=== PATIENT | female | born 1960 | race Caucasian/White ===

== ENCOUNTER 2016-05-28 10:50 | Observation (INO) | payer BC ==
[~2016-05-28] VITALS: Ht 165.1 cm; Wt 80.7 kg
[~2016-05-28 10:50] MED LIST: BUPIVACAINE/EPINEPHRINE 0.5% PF 30 ML VIAL ONE; DIAZ5TAB PO; FENO54TA PO; GELFOAM SIZE 100 ONE; GENTAMICIN SULFATE 80 MG/2 ML VIAL ONE; LACTATED RINGER'S 1000 ML INJ 1,000 ML IV ONE; LAMI200T PO; OMEP20TA PO; ONDANSETRON HCL 4 MG/2 ML VIAL IV PUSH ONE; OXYC1TAB36 PO; PHENYLEPHRINE HCL 10 MG/ML VIAL IV ONE; PROPOFOL 200 MG/20 ML AMP IV ONE; PSEU30TA2 PO; RISP3TAB2 PO; SERT-129 PO; SODIUM CHLOR 0.9% 250 ML INJ 250 ML IV ONE; SODIUM CHLOR 0.9% 250 ML INJ 250 ML ONE; THROMBIN (TOPICAL) 5,000 UNIT VIAL ONE; TRAZ300T2 PO; VANCOMYCIN HCL 1000 MG VIAL ONE; ceFAZolin 2 GM PREMIX 50 ML ONE; ePHEDrine/NS 25 MG/5 ML SYR IV ONE
[2016-05-28 11:36] VITALS: BP 158/64; PULSE 82; RESP 16; TEMP 97.3; O2SAT 98
[2016-05-28] MEDS ORDERED: METOPROLOL TARTRATE 25 MG TAB PO PRN (11:45)
[2016-05-28] MEDS ORDERED: INSULIN HUMAN REGULAR 1,000 UNITS/10 ML VIAL SQ PRN (11:45)
[2016-05-28] MEDS ORDERED: LACTATED RINGER'S 1000 ML IV SCH (12:00)
[2016-05-28] MEDS ORDERED: PHENYLEPHRINE HCL 10 MG/ML VIAL IV ONE (12:00)
[2016-05-28] MEDS ORDERED: SODIUM CHLORID 0.9% 500 ML IV SCH (12:00)
[2016-05-28] MEDS ORDERED: FAMOTIDINE 20 MG/2 ML VIAL ONE ×2 (13:08→13:58)
[2016-05-28] MEDS ORDERED: ARTIFICIAL TEARS OPTH OINT 3.5 APPLIC/3.5 GM TUBO ONE (13:57)
[2016-05-28] MEDS ORDERED: ACETAMINOPHEN 1000 MG/100 ML VIAL IV ONE (13:57)
[2016-05-28] MEDS ORDERED: SUGAMMADEX SODIUM 200 MG/2 ML VIAL IV PUSH ONE ×2 (13:58)
[2016-05-28] MEDS ORDERED: fentaNYL CITRATE 250 MCG/5 ML AMP ONE (13:58)
[2016-05-28] MEDS ORDERED: MIDAZOLAM HCL 2 MG/2 ML VIAL ONE (13:58)
[2016-05-28] MEDS ORDERED: GELFOAM SIZE 100 ONE (14:36)
[2016-05-28] MEDS ORDERED: methylPREDNISolone ACETATE 40 MG/ML VIAL IA ONE (15:58)
--- NOTE | 2016-05-28 16:55 | PD.OP ---
Operative Report Date of Surgery: May 28, 2016 Preoperative Diagnosis: L4-5 recurrent disk herniation Postoperative Diagnosis: L4-5 recurrent disk herniation Procedure: Redo L4-L5 left hemilaminectomy and microdiscectomy Anesthesia: general Surgeon: Martin Lucia Tax Assistant(s): Brenda Watson Operation and Findings: INDICATIONS FOR THE SURGICAL PROCEDURE ms Woodward is a 55 year-old female with history of a prior left L4-5 laminectomy and microdiscectomy. She suffered recurrent falls and presented with intractable mechanical back pain and clinical evidence of left L5 lower extremity radiculopathy. She was found to have a recurrent disk herniation causing significant stenosis with significant mass effect on the neural structures which correlated with the clinical symptoms. She failed maximum nonsurgical management in the past. A surgical decompression were indicated as a last resource. The [id number] details of the procedure, indications, alternatives, risks and potential complications were fully discussed with the patient. The patient fully understood. All the questions were answered. No guarantees were given. The patient voiced requesting the procedure and provided informed consents. The patient was offered the alternative of delaying the procedure and continuing with nonsurgical management. DETAILS OF THE SURGICAL PROCEDURE After the induction of general anesthesia, endotracheal intubation was performed. A De Leon catheter, bilateral MEHDI hose and sequential compression devices were placed and kept throughout the procedure. The patient was positioned prone on a Willie table over a Abdoulaye frame. All pressure points were carefully padded with eggcrate mattress. The eyes were tapped shut after ointment was applied by the anesthesiologist to prevent corneal abrasion. A Emigdio hugger was placed over the exposed lower body to maintain control of the core body temperature. The lower lumbar region was prepped and draped in the usual sterile fashion. A spinal needle was placed for localization and an x- ray performed with a C-arm. A skin incision was made in the midline over the spinous processes L4-L5 with a #10 blade. Small subcutaneous bleeders were controlled with a bipolar and the dissection was carried out through the lumbar fascia exposing the spinous processes. A subperiosteal dissection was performed with a Gore elevator and a Bovie over the left spinous process lamina and facets. A microdiscectomy self- retaining retractor was placed on the incision and an x-ray was obtained with an instrument placed underneath the lamina. At this point in the procedure the operating microscope was draped in the usual sterile fashion and brought to the field. The rest of the surgical procedure was performed using microsurgical dissection technique with exception of the closure. Once the level was confirmed, the margins of the prior laminectomy were exposed. There was extensive scar tissue from the prior surgery. Once the bony margins were exposed, a laminectomy was performed extending slightly the prior opening using the TPS drill with an AM-8 drill bit. A medial facetectomy was performed and the superior free border of the ligamentum flavum was dissected with a ligament dissector and removed with a thin footplate 2 mm Kerrison. The scar tssue was carefully dissected from the dural sac and the L5 nerve root was identified and followed towards its exit in the foramen. A foraminotomy was done. Epidural veins located laterally to the dural sac were coagulated with a bipolar and incised with micro scissors. Gentle medial retraction of the dural sac allowed inspection of the disc space. The patient had a very large, recurrent disc extrusion, causing mass effect over the exiting nerve root. The disc was coagulated with the bipolar. It was adherent to the surrounding neural structures and extra care was taken to free it from the scar tissue. The dura was very thinned. The herniated disc was carefully dissected from the surrounding tissue and removed with pituitary forceps. Then, a microdiscectomy was carried out in the standard fashion using straight and up-biting pituitary forceps. A good decompression of the dural sac and nerve root was achieved. The exit of the nerve root was inspected for residual disc fragments and hemostasis was secured with the bipolar. The incision was irrigated with a large amount of saline solution. A Valsalva maneuver failed to show any cerebrospinal fluid leak or bleeding. The decompression was assessed again and found to be satisfactory. The incision was then closed in layers. The fascia was closed with 0 Vicryl sutures in an interrupted fashion. The superficial fascia was closed with 0 Vicryl sutures. The fascia was infiltrated with 0.5% Marcaine with epinephrine 1:100,000 dilution. The subcutaneous tissue was irrigated then closed with 0 Vicryl and 3 -0 Vicryl. The skin was closed with a 4-0 sutures. Dermabond was applied to the skin. A sterile dressing was applied. At the end of the procedure, the sponge, needle and instrument counts were all correct. Estimated blood loss was less than 30-40 cc. No blood transfusion was given. No intraoperative complications occurred. The patient received prophylactic antibiotics. The patient was then extubated and transferred to the recovery room in stable condition. Martin Lucia MD May 28, 2016 16:55
[2016-05-28] MEDS ORDERED: *HYDROmorphone PF 1 MG VIAL PERIprocedural Use ONLY ONE (17:00)
[2016-05-28] MEDS ORDERED: DO NOT ADM ANY ANTICOAGULANT DRUGS XX PRN (17:00)
--- NOTE | 2016-05-28 17:19 | RADRPT ---
EXAM DATE/TIME: 05/28/2016 14:34 [facility] COMPARISON: SPINE LUMBAR LATERAL ONLY, August 26, 2015, 13:31. INDICATIONS : Level Localization revision L4,L5 laminectomy. MEDICAL HISTORY : None. SURGICAL HISTORY : Discectomy, lumbar. ENCOUNTER: Initial ACUITY: 1 day PAIN SCORE: Non-responsive. LOCATION: Lumbar spine. FINDINGS: The localization device is in place posteriorly behind the last lumbar vertebral body on the film of 14: 19. There is a localization device placed posteriorly at the second from the bottom disc space level on the film from 15:16. CONCLUSION: Level localization as above. Jerrell Sun MD on May 28, 2016 at 17:16 Board Certified Radiologist. This report was verified electronically.
[2016-05-28] MEDS: NS + KCL 20 MEQ INJ 1,000 ML IV SCH (17:23)
[2016-05-28] MEDS ORDERED: SODIUM CHLORIDE 0.9% FLUSH 5 ML FLUSH IVF PRN (17:30)
[2016-05-28] MEDS ORDERED: ACETAMINOPHEN/HYDROcodone 325 MG/10 MG TAB PO PRN ×2 (17:30)
[2016-05-28] MEDS ORDERED: ACETAMINOPHEN 325 MG TAB PO PRN (17:30)
[2016-05-28] MEDS ORDERED: MORPHINE SULFATE 4 MG/ML INJ IV PUSH PRN ×2 (17:30)
[2016-05-28] MEDS ORDERED: PSEUDOEPHEDRINE HCL 30 MG TAB PO PRN (17:30)
[2016-05-28] MEDS ORDERED: HYDROmorphone HCL PF 1 MG/ML VIAL IV PUSH PRN ×2 (18:45)
[2016-05-28 18:59] VITALS: BP 122/59; PULSE 74; RESP 16; TEMP 98.1; O2SAT 96
[2016-05-28 20:00] VITALS: BP 131/73; PULSE 72; RESP 16; TEMP 96.5; O2SAT 98
[2016-05-28 20:53] VITALS: O2SAT 98
[2016-05-28] MEDS ORDERED: traZODone HCL 100 MG TAB PO SCH (21:00)
[2016-05-28] MEDS ORDERED: lamoTRIgine 100 MG TAB PO SCH (21:00)
[2016-05-28] MEDS ORDERED: risperiDONE 3 MG TAB PO SCH (21:00)
[2016-05-28] MEDS: DIAZEPAM 5 MG TAB PO PRN (22:12)
[2016-05-28] MEDS: oxyCODONE/ACETAMINOPHEN 10 MG/325 MG TAB PO PRN (22:12)
[2016-05-28] MEDS: DOCUSATE SODIUM 100 MG CAP PO SCH (22:13)
[2016-05-28] MEDS: SODIUM CHLORIDE 0.9% FLUSH 5 ML FLUSH IVF SCH (22:15)
[2016-05-29] VITALS: BP 127/59; PULSE 77; RESP 16; TEMP 96.9; O2SAT 95
[2016-05-29] MEDS: ceFAZolin 2 GM PREMIX 50 ML IV SCH ×2 (00:42→09:18)
[2016-05-29 03:35] VITALS: BP 150/68; PULSE 81; RESP 16; TEMP 97.1; O2SAT 95
[2016-05-29] MEDS: NS + KCL 20 MEQ INJ 1,000 ML IV SCH (04:00)
[2016-05-29] MEDS: oxyCODONE/ACETAMINOPHEN 10 MG/325 MG TAB PO PRN ×2 (05:27→11:48)
[2016-05-29 08:00] VITALS: BP 152/75; PULSE 78; RESP 18; TEMP 96.7; O2SAT 96
[2016-05-29] MEDS ORDERED: SERTRALINE HCL 100 MG TAB PO SCH (09:00)
[2016-05-29] MEDS ORDERED: PANTOPRAZOLE SOD 40 MG DELAYED RELEASE TAB PO SCH (09:00)
[2016-05-29] MEDS ORDERED: FENOFIBRATE 48 MG TAB PO SCH (09:00)
[2016-05-29] MEDS: DOCUSATE SODIUM 100 MG CAP PO SCH (09:18)
[2016-05-29] MEDS: SODIUM CHLORIDE 0.9% FLUSH 5 ML FLUSH IVF SCH (09:19)
[2016-05-29] MEDS ORDERED: INFLUENZA VIRUS VACCINE (QUADRIVALENT) 0.5 ML SYR IM ONE (10:00)
[2016-05-29] MEDS ORDERED: HYDR-3583 PO (10:23)
[2016-05-29 10:28] VITALS: O2SAT 97
[2016-05-29] MEDS ORDERED: NICOTINE 14 MG/24 HR PATCH TD SCH (10:30)
[2016-05-29] MEDS ORDERED: NICO14DI TD (10:30)
--- NOTE | 2016-05-29 10:31 | HHI.DCPOC ---
Discharge Care Plan Diagnosis: (1) Status post lumbar laminectomy Goals to Promote Your Health * To prevent worsening of your condition and complications * To maintain your health at the optimal level Directions to Meet Your Goals Take your medications as prescribed Follow your dietary instruction Follow activity as directed Keep your appointments as scheduled Take your immunizations and boosters as scheduled If your symptoms worsen call your PCP, if no PCP go to Urgent Care Center or Emergency Room Smoking is Dangerous to Your Health. Avoid second hand smoke Call the 24-hour hour crisis hotline for domestic abuse at Katelyn Loera May 29, 2016 10:31
--- NOTE | 2016-05-29 10:34 | HHI.DS ---
Discharge Summary Admission Date May 28, 2016 at 18:23 Discharge Date: May 29, 2016 Admitting Diagnosis s/p lumbar lami (1) Status post lumbar laminectomy ICD Code: Z98.89 Brief History Ms Woodward is a 55 year-old female with history of a prior left L4-5 laminectomy and microdiscectomy. She suffered recurrent falls and presented with intractable mechanical back pain and clinical evidence of left L5 lower extremity radiculopathy. She was found to have a recurrent disk herniation causing significant stenosis with significant mass effect on the neural structures which correlated with the clinical symptoms. Imaging Last Impressions Lumbar Spine X-Ray 05/28/16 0000 Signed Impressions: Service Date/Time: Saturday, May 28, 2016 14:34 - CONCLUSION: Level localization as above. Jerrell Sun MD PE at Discharge Ms. Woodward is alert, in no apparent distress. Speech is fluent. Incision is clean and dry, with dermabond prineo dressing in place. Cranial nerve examination: pupils to be equal, round and reactive to light. Extra-ocular movements are intact. Facial motor are normal and symmetrical. Gross hearing appears intact. Neck: soft, supple Muscle strength: 5/5 to both iliopsoas, quadriceps, hamstrings, plantarflexion and dorsiflexion in lower extremities. Respiratory: clear, nonlabored Hospital Course Ms. Woodward underwent a redo L4-L5 left hemilaminectomy and microdiscectomy May 28, 2016. Her surgery went well without complications. She reports of paresthesias in left leg. She denies chest pain, difficulty breathing. Wound care, activity restrictions, and do's and donts. Discussed with her also regarding smoking risk, rx for nicotine patch provided. She will be discharged home in stable conditions. Pt Condition on Discharge: Stable Discharge Disposition: Discharge Home Discharge Instructions DIET: Follow Instructions for: Heart Healthy Diet ACTIVITIES You can perform: Weight Bearing As Leo ADDITIONAL Activity Instructio: Avoid strenuous activities, heavy lifting, bending, twisting or any other activities that will place stress on the spine. Wear lumbar brace when out of bed. Avoid falls. Ambulate often. New Medications: Hydrocodone-Acetaminophen (Hydrocodone-Acetaminophen) 10-325 mg Tab 2 TAB PO Q8HR PRN PAIN SCALE 6 TO 10 #62 Ref 0 TAB Nicotine Patch (Nicotine Patch) 14 Mg/24 Hr Patch 1 PATCH TD DAILY smoking #15 Ref 0 % Continued Medications: Diazepam (Diazepam) 5 Mg Tab 5 MG PO TID PRN ANXIETY Ref 0 TAB Fenofibrate (Fenofibrate) 54 Mg Tab 54 MG PO DAILY #30 Ref 3 TAB Lamotrigine (Lamictal) 200 Mg Tab 200 MG PO HS Control Seizures #30 Ref 0 TAB Omeprazole (Omeprazole) 20 Mg Tab Unknown Dose PO DAILY #30 Ref 0 TAB Oxycodone-Acetaminophen (Oxycodone-Acetaminophen) 10-325 mg Tab 1 TAB PO Q6H PRN PAIN #90 Ref 0 TAB Pseudoephedrine (Pseudoephedrine) 30 Mg Tab 30 MG PO Q6H PRN ALLERGIES Ref 0 TAB Risperidone (Risperidone) 3 Mg Tab 3 MG PO HS #30 Ref 0 TAB Sertraline (Sertraline) 100 Mg Tab 200 MG PO DAILY #30 Ref 0 TAB Trazodone (Trazodone) 300 Mg Tab 300 MG PO HS Control Depression #30 Ref 0 TAB Katelyn Loera May 29, 2016 10:34
[2016-05-29] MEDS: DIAZEPAM 5 MG TAB PO PRN (10:54)
[2016-05-29 12:00] VITALS: BP 142/64; PULSE 70; RESP 15; TEMP 96.8; O2SAT 96
[2016-05-30] MEDS ORDERED: REMOVE OLD PATCH TD SCH (09:00)
[2016-06-11] MEDS ORDERED: OXYC1TAB36 PO (15:55)
[2016-06-11] MEDS ORDERED: NEUR300C PO (16:57)
[2016-06-15] MEDS ORDERED: NICO14DI T-DERMAL (11:49)
== END 2016-05-29 12:04 | disposition home or self-care (01) ==
LOC: HSDC 10:50 → N06B 18:23 → UNDOADMOB 18:23 → UNDODISOB 05-29 12:04
PROVIDERS: ADMIT Neurological Surgery; ATTEND Neurological Surgery
DX: M51.16 Intervertebral disc disorders with radiculopathy, lumbar region (principal); R20.2 Paresthesia of skin; Z23 Encounter for immunization
CPT/HCPCS: 00630; 63030; 72020; 76000; 90471; 90686; 94150; 97163; G0378; G8987; G8988; J0131; J0690; J1030; J1170; J1580; J2250; J2370; J2405; J3010; J3370; J3480; J7050; J7120; L0627; G0008; Q2038